=== PATIENT | female | born 1970 | race Caucasian/White ===

== ENCOUNTER 2018-04-08 22:12 | Emergency (ER) | payer MEDICAID | END 2018-04-08 23:00 | disposition home or self-care (01) | LOC: E/R 22:12 | DX: R04.0 Epistaxis (principal); I10 Essential (primary) hypertension | CPT/HCPCS: 30903; 99283-25 ==

== ENCOUNTER 2018-04-09 13:22 | Emergency (ER) | payer MEDICAID | END 2018-04-09 15:05 | disposition home or self-care (01) | LOC: FTE 13:22 | DX: Z48.00 Encounter for change or removal of nonsurgical wound dressing (principal); I10 Essential (primary) hypertension; Z79.82 Long term (current) use of aspirin | CPT/HCPCS: 99281; Z7502 ==

== ENCOUNTER 2018-08-25 21:54 | Emergency (ER) | payer MEDICAID ==
[2018-08-26 00:27] LABS: ADD UMIC YES; UR AMORPHOUS CRYSTAL FEW /HPF (NONE SEEN); UR ASCORBIC ACID NEGATIVE (NEGATIVE); UR BACTERIA MANY /HPF (NONE SEEN); UR BILIRUBIN (Dip) NEGATIVE (NEGATIVE); UR BLOOD (Dip) NEGATIVE (NEGATIVE); UR CLARITY SLIGHTLY CLOUDY (CLEAR); UR COLOR YELLOW (YELLOW); UR GLUCOSE (Dip) NEGATIVE (NEGATIVE); UR KETONES (Dip) NEGATIVE (NEGATIVE); UR LEUKOCYTE ESTERASE (Dip) 1+ Leu/ul (NEGATIVE); UR MUCUS FEW /HPF (NONE SEEN); UR NITRITE (Dip) NEGATIVE (NEGATIVE); UR RBC 3 /HPF (0-5); UR SPECIFIC GRAVITY (Dip) 1.018 (1.003-1.030); UR SQUAMOUS EPITHELIAL CELL FEW /HPF (FEW); UR TOTAL PROTEIN (Dip) NEGATIVE (NEGATIVE); UR UROBILINOGEN (Dip) NEGATIVE (NEGATIVE); UR WBC 21 /HPF (0-5)
[2018-08-26] MEDS: HYDROCODONE/APAP (10/325) TAB PO (01:39)
== END 2018-08-26 01:47 | disposition home or self-care (01) ==
LOC: FTE 08-26 01:47
DX: M54.5 Low back pain (principal); M62.830 Muscle spasm of back; N39.0 Urinary tract infection, site not specified; I10 Essential (primary) hypertension; Z79.82 Long term (current) use of aspirin
CPT/HCPCS: 72100; 81001; 84703; 99284-25